=== PATIENT | female | born 1985 | race American Indian/Alaskan Native ===

== ENCOUNTER 2018-08-01 15:21 | Emergency (ER) | payer SELFPAY ==
[2018-08-01 15:29] VITALS: BP 145/85
[2018-08-01 16:55] LABS: Bacteria,Urine 1+ /HPF (Negative); Bilirubin,Urine NEG (Negative); Blood,Urine SM (Negative); Color,Urine Yellow (Yellow)
[2018-08-01 16:58] LABS: HCG Qualitative,Urine Negative (Negative)
--- NOTE | 2018-08-01 19:28 | Emergency Department Report ---
ED Female HPI - General Chief complaint: Urogenital-Female Stated complaint: YEAST INFECTION Time Seen by Provider: 08/01/18 19:23 Source: patient Mode of arrival: Ambulatory Limitations: No Limitations - History of Present Illness Initial comments: pt is a 33 y/o aaf who presents for vaginal irritation and urinary frequency after using personal cleansing product [employer] Pearls 4 days ago states jorge fishy vaginal discharge and itching , sting with urination pt is denies STI does not want STD screening or exam, there is no fever no chills no n/v MD Complaint: vaginal discharge, dysuria Onset/Timin -: days(s) Location: labia Severity: mild Severity scale (0 -10): 3 Quality: other (itching irritation) Consistency: constant Improves with: none Worsens with: urination Are you Now?: No Last Menstrual Period: 07/30/18 EDC: 05/06/19 Associated Symptoms: vaginal discharge, dysuria. denies: abdominal pain, nausea/vomiting, fever/chills, headaches, loss of appetite, hematuria, rash, seizure, shortness of breath, syncope, weakness - Related Data Sexually active: Yes Previous Rx's Medication Instructions Recorded Last Taken Type Acetaminophen/Codeine [Tylenol #3] 1 tab PO Q6H PRN #15 tab 07/29/15 Unknown Rx Ibuprofen [Motrin 800 MG tab] 800 mg PO Q8HR PRN #30 tablet 07/29/15 Unknown Rx methOCARBAMOL [Robaxin TAB] 500 mg PO BID #20 tab 07/29/15 Unknown Rx Fluconazole [Diflucan TAB] 150 mg PO ONCE #1 tablet 08/01/18 Unknown Rx Nitrofurantoin Monohyd/M-Cryst 100 mg PO BID #14 capsule 08/01/18 Unknown Rx [Macrobid 100 mg Capsule] metroNIDAZOLE [Flagyl] 500 mg PO BID #20 tab 08/01/18 Unknown Rx Allergies Allergy/AdvReac Type Severity Reaction Status Date / Time No Known Allergies Allergy Unverified 07/29/15 16:36 ED Review of Systems ROS: Stated complaint: YEAST INFECTION Other details as noted in HPI Constitutional: denies: chills, fever Eyes: denies: eye pain, eye discharge, vision change ENT: denies: ear pain, throat pain Respiratory: denies: cough, shortness of breath, wheezing Cardiovascular: denies: chest pain, palpitations Endocrine: no symptoms reported Gastrointestinal: denies: abdominal pain, nausea, diarrhea Genitourinary: urgency, dysuria, frequency. denies: hematuria, discharge, abnormal menses, dyspareunia Musculoskeletal: denies: back pain, joint swelling, arthralgia Skin: denies: rash, lesions Neurological: denies: headache, weakness, paresthesias Psychiatric: denies: anxiety, depression Hematological/Lymphatic: denies: easy bleeding, easy bruising ED Past Medical Hx - Past Medical History Previous Medical History?: No Additional medical history: OBESITY - Surgical History Past Surgical History?: No - Social History Smoking Status: Current Every Day Smoker Substance Use Type: None - Medications Home Medications: Home Medications Medication Instructions Recorded Confirmed Last Taken Type Acetaminophen/Codeine [Tylenol #3] 1 tab PO Q6H PRN #15 tab 07/29/15 Unknown Rx Ibuprofen [Motrin 800 MG tab] 800 mg PO Q8HR PRN #30 tablet 07/29/15 Unknown Rx methOCARBAMOL [Robaxin TAB] 500 mg PO BID #20 tab 07/29/15 Unknown Rx Fluconazole [Diflucan TAB] 150 mg PO ONCE #1 tablet 08/01/18 Unknown Rx Nitrofurantoin Monohyd/M-Cryst 100 mg PO BID #14 capsule 08/01/18 Unknown Rx [Macrobid 100 mg Capsule] metroNIDAZOLE [Flagyl] 500 mg PO BID #20 tab 08/01/18 Unknown Rx ED Physical Exam - General Limitations: No Limitations General appearance: alert, in no apparent distress - Head Head exam: Present: atraumatic, normocephalic - Eye Eye exam: Present: normal appearance, PERRL, EOMI - ENT ENT exam: Present: mucous membranes moist - Neck Neck exam: Present: normal inspection - Respiratory Respiratory exam: Present: normal lung sounds bilaterally. Absent: respiratory distress - Cardiovascular Cardiovascular Exam: Present: regular rate, normal rhythm. Absent: systolic murmur, diastolic murmur, rubs, gallop - GI/Abdominal GI/Abdominal exam: Present: soft, normal bowel sounds. Absent: distended, rebound, bruit, hernia - Rectal Rectal exam: Present: deferred - External exam: Present: other (exam deferred per patient) - Extremities Exam Extremities exam: Present: normal inspection - Back Exam Back exam: Present: normal inspection, full ROM. Absent: tenderness, CVA tenderness (R), CVA tenderness (L), muscle spasm, rash noted - Neurological Exam Neurological exam: Present: alert, oriented X3, normal gait - Psychiatric Psychiatric exam: Present: normal affect, normal mood - Skin Skin exam: Present: warm, dry, intact, normal color. Absent: rash ED Course Vital Signs 08/01/18 15:26 Temperature 98.3 F Pulse Rate 88 Respiratory 18 Rate Blood Pressure 145/85 O2 Sat by Pulse 97 Oximetry ED Medical Decision Making - Lab Data Labs 08/01/18 16:01 Urine Color Yellow Urine Turbidity Slightly-cloudy Urine pH 6.0 Ur Specific [place] 1.027 Urine Protein 30 mg/dl Urine Glucose (UA) Neg Urine Ketones Neg Urine Blood Sm Urine Nitrite Neg Urine Bilirubin Neg Urine Urobilinogen 2.0 Ur Leukocyte Esterase Lg Urine WBC (Auto) 59.0 H Urine RBC (Auto) 65.0 U Epithel Cells (Auto) 7.0 Urine Bacteria (Auto) 1+ Urine HCG, Qual Negative - Medical Decision Making this is a UTI with BV r/t feminine products plan , macrobid, flagyl, diflucan, pt will follow up with [facility] in 2-3 or return to ed if symptoms worsen pt verbalized agreement and understanding with same pt for dc to home in stable condition at this time. Critical care attestation.: If time is entered above; I have spent that time in minutes in the direct care of this critically ill patient, excluding procedure time. ED Disposition Clinical Impression: Bacterial vaginitis UTI (urinary tract infection) Qualifiers: Urinary tract infection type: acute cystitis Hematuria presence: without hematuria Qualified Code(s): N30.00 - Acute cystitis without hematuria Disposition: DC-01 TO HOME OR SELFCARE Is pt being admited?: No Does the pt Need Aspirin: No Condition: Stable Instructions: Bacterial Vaginosis (ED), Urinary Tract Infection in Women (ED) Prescriptions: Fluconazole [Diflucan TAB] 150 mg PO ONCE #1 tablet metroNIDAZOLE [Flagyl] 500 mg PO BID #20 tab Nitrofurantoin Monohyd/M-Cryst [Macrobid 100 mg Capsule] 100 mg PO BID #14 capsule Referrals: PRIMARY CARE,MD [Primary Care Provider] - 3-5 Days Forms: STI Treatment and Prevention
== END 2018-08-01 19:44 | disposition home or self-care (01) ==
LOC: ED 15:21
DX: N76.0 Acute vaginitis (principal); N39.0 Urinary tract infection, site not specified; F17.200 Nicotine dependence, unspecified, uncomplicated; E66.9 Obesity, unspecified; Z68.41 Body mass index [BMI] 40.0-44.9, adult
CPT/HCPCS: 81001; 81025; 99283

== ENCOUNTER 2019-09-19 13:56 | Emergency (ER) | payer SELFPAY ==
[2019-09-19 14:04] VITALS: BP 135/93
--- NOTE | 2019-09-19 14:04 | Event Note ---
ED Screening Note ED Screening Note: vaginal discharge left side pain This initial assessment/diagnostic orders/clinical plan/treatment(s) is/are subject to change based on patients health status, clinical progression and re- assessment by fellow clinical providers in the ED. Further treatment and workup at subsequent clinical providers discretion. Patient/guardian urged not to elope from the ED as their condition may be serious if not clinically assessed and managed. Initial orders include: ua upt
[2019-09-19 15:23] LABS: Bacteria,Urine 1+ /HPF (Negative); Bilirubin,Urine NEG (Negative); Blood,Urine MOD (Negative); Color,Urine Yellow (Yellow); Mucus,Urine FEW /HPF; Protein,Urine <15 mg/dL mg/dL (Negative); Urobilinogen,Urine < 2.0 mg/dL (<2.0)
[2019-09-19 15:24] LABS: HCG Qualitative,Urine Negative (Negative)
--- NOTE | 2019-09-19 17:28 | Emergency Department Report ---
<SIMBA ROACH - Last Filed: 09/19/19 17:24> ED Female HPI - General Chief complaint: Urogenital-Female Stated complaint: DISCHARGE/YEAST INFECTION Time Seen by Provider: 09/19/19 15:36 Source: patient Mode of arrival: Ambulatory Limitations: No Limitations - History of Present Illness Initial comments: 34-year-old morbidly obese -[place] female presents emerged department complaining of a couple day history of left-sided pelvic discomfort associated with vaginal discharge with possible suspicion of an STD. Reports of the discharge having mild odor but no pruritus. Reports no chest pain or palpitations. No nausea or vomiting. No hematuria or dysuria MD Complaint: vaginal discharge -: Gradual Location: suprapubic Radiation: non-radiating Severity: mild Quality: dull Consistency: constant Improves with: none Worsens with: none Are you Now?: No - Related Data Previous Rx's Medication Instructions Recorded Last Taken Type Acetaminophen/Codeine [Tylenol #3] 1 tab PO Q6H PRN #15 tab 07/29/15 Unknown Rx Ibuprofen [Motrin 800 MG tab] 800 mg PO Q8HR PRN #30 tablet 07/29/15 Unknown Rx methOCARBAMOL [Robaxin TAB] 500 mg PO BID #20 tab 07/29/15 Unknown Rx Fluconazole [Diflucan TAB] 150 mg PO ONCE #1 tablet 08/01/18 Unknown Rx Nitrofurantoin Monohyd/M-Cryst 100 mg PO BID #14 capsule 08/01/18 Unknown Rx [Macrobid 100 mg Capsule] metroNIDAZOLE [Flagyl] 500 mg PO BID #20 tab 08/01/18 Unknown Rx metroNIDAZOLE [Flagyl] 2,000 mg PO ONCE #8 tab 09/19/19 Unknown Rx Allergies Allergy/AdvReac Type Severity Reaction Status Date / Time No Known Allergies Allergy Unverified 07/29/15 16:36 ED Review of Systems Comment: All other systems reviewed and negative ED Past Medical Hx - Past Medical History Previous Medical History?: No Additional medical history: OBESITY - Surgical History Past Surgical History?: No - Social History Smoking Status: Current Every Day Smoker Substance Use Type: None - Medications Home Medications: Home Medications Medication Instructions Recorded Confirmed Last Taken Type Acetaminophen/Codeine [Tylenol #3] 1 tab PO Q6H PRN #15 tab 07/29/15 Unknown Rx Ibuprofen [Motrin 800 MG tab] 800 mg PO Q8HR PRN #30 tablet 07/29/15 Unknown Rx methOCARBAMOL [Robaxin TAB] 500 mg PO BID #20 tab 07/29/15 Unknown Rx Fluconazole [Diflucan TAB] 150 mg PO ONCE #1 tablet 08/01/18 Unknown Rx Nitrofurantoin Monohyd/M-Cryst 100 mg PO BID #14 capsule 08/01/18 Unknown Rx [Macrobid 100 mg Capsule] metroNIDAZOLE [Flagyl] 500 mg PO BID #20 tab 08/01/18 Unknown Rx metroNIDAZOLE [Flagyl] 2,000 mg PO ONCE #8 tab 09/19/19 Unknown Rx ED Physical Exam - General Limitations: No Limitations General appearance: alert, in no apparent distress - Head Head exam: Present: atraumatic, normocephalic - Eye Eye exam: Present: normal appearance, PERRL, EOMI Pupils: Present: normal accommodation - ENT ENT exam: Present: mucous membranes moist - Neck Neck exam: Present: normal inspection - Respiratory Respiratory exam: Present: normal lung sounds bilaterally. Absent: respiratory distress - Cardiovascular Cardiovascular Exam: Present: regular rate, normal rhythm. Absent: systolic murmur, diastolic murmur, rubs, gallop - GI/Abdominal GI/Abdominal exam: Present: soft, normal bowel sounds - Extremities Exam Extremities exam: Present: normal inspection, normal capillary refill - Back Exam Back exam: Present: normal inspection, CVA tenderness (R), CVA tenderness (L). Absent: paraspinal tenderness, vertebral tenderness - Neurological Exam Neurological exam: Present: alert, oriented X3, CN II-XII intact, normal gait - Psychiatric Psychiatric exam: Present: normal affect, normal mood. Absent: flat affect, manic, suicidal ideation - Skin Skin exam: Present: warm, dry, intact, normal color. Absent: rash, cyanosis, diaphoretic, erythema ED Disposition Disposition: DC-01 TO HOME OR SELFCARE Is pt being admited?: No Does the pt Need Aspirin: No Condition: Stable Instructions: Bacterial Vaginosis (ED), Chlamydia Infection (ED), Sexually Transmitted Diseases (ED), Safe Sex (ED), Trichomoniasis (ED) Prescriptions: metroNIDAZOLE [Flagyl] 2,000 mg PO ONCE #8 tab Referrals: PRIMARY CARE,MD [Primary Care Provider] - 3-5 Days Forms: STI Treatment and Prevention <SOL METZ Last Filed: 09/19/19 18:19> ED Review of Systems ROS: Stated complaint: DISCHARGE/YEAST INFECTION Other details as noted in HPI ED Physical Exam - External exam: Present: normal external exam. Absent: erythema, swelling Speculum exam: Present: vaginal discharge, cervical discharge Bi-manual exam: Present: normal bi-manual exam. Absent: adnexal tenderness, adnexal mass, uterine enlargement, uterine tenderness ED Course Vital Signs 09/19/19 14:02 Temperature 98.0 F Pulse Rate 81 Respiratory 18 Rate Blood Pressure 135/93 O2 Sat by Pulse 98 Oximetry Critical care attestation.: If time is entered above; I have spent that time in minutes in the direct care of this critically ill patient, excluding procedure time.
[2019-09-19] MEDS ORDERED: LIDOCAINE-MPF (1%) 10 MG/1 ML VIAL 5 ML INFILTRATI ONE (17:30)
[2019-09-19] MEDS ORDERED: AZITHROMYCIN 250 MG TAB PO STA (17:30)
== END 2019-09-19 18:35 | disposition home or self-care (01) ==
LOC: ED 13:56
DX: R10.2 Pelvic and perineal pain (principal); N89.8 Other specified noninflammatory disorders of vagina
CPT/HCPCS: 81001; 81025; 87086; 87210; 96372; 99284; J0696